=== PATIENT | male | born 1995 | race Hispanic/Latino ===

== ENCOUNTER 2024-10-13 00:33 | Emergency (ER) | payer BC, SELFPAY ==
[2024-10-13 00:40] VITALS: BP 144/80
--- NOTE | 2024-10-13 02:13 | ED.GENMED ---
History of Present Illness
General
Chief Complaint: Ear Problem
Source: patient
Exam Limitations: none
Time Seen by Provider: 10/13/24 01:58
Nursing documentation reviewed up to this point in time: agreed with
History of Present Illness
History of Present Illness:
Note:
CHIEF COMPLAINT(S)
Severe ear pain, particularly in the right ear, with a sensation of fullness and unable to tolerate pain.
HISTORY OF PRESENT ILLNESS
The patient is a 29-year-old male who presents with severe ear pain that began on Saturday 4 days ago. Initially, the pain was tolerable but has become progressively worse, especially in the right ear. He reports a sensation of fullness and the
inability to touch the area due to pain. The patient mentioned feeling liquid in the ear but has not observed any drainage. He described attempting to manage the pain with [id number] ear drops, which have not provided relief. The patient also
reported feeling cold but denies any fever, nausea, or vomiting. The pain is exacerbated when lying down, affecting his ability to sleep. He has not had anything like this before. He denies any nausea or vomiting.
PHYSICAL EXAM
Nursing notes reviewed and vital signs reviewed.
General: Patient is well appearing and in no acute distress; non-toxic
Skin: Warm and dry, no rashes or lesions
Head: Normocephalic, atraumatic
Eyes: Sclera non-icteric. EOMs intact.
Ears: Yellow/white debris noted in external ear canals bilaterally with swelling and erythema. Mastoid tenderness on the right. Occlusion of TM on the right due to degree of swelling and debris.
Cardiac: Regular rate and rhythm, no murmurs
Pulm: Normal respiratory effort, no wheezes, rales, or rhonchi
Neuro: CN II-XII intact, no focal neurologic deficits.
Psychiatric: Appropriate mood and affect.
PLAN
1. Administer a Toradol injection for pain management.
2. Conduct a CT scan to assess for any extension of the ear infection to the surrounding structures.
3. Perform blood work for further evaluation.
4. Prescribe eardrops and oral antibiotics for treatment of the outer ear infection.
5. Advise the patient to follow up with his primary care physician to ensure proper healing.
DIFFERENTIAL DIAGNOSIS
The Differential Diagnosis includes, in no particular order and is not limited to:
1. Acute Otitis Externa
2. Acute Otitis Media
3. Mastoiditis
4. Tinnitus
5. Temporomandibular Joint Disorder
6. Eustachian Tube Dysfunction
7. Labyrinthitis
8. Ear Trauma
9. Sinusitis with referred ear pain
10. Foreign Body in the Ear Canal
MDM/DISPOSITION
The patient is a 29-year-old male who presents with severe ear pain that began on Saturday 4 days ago. Physical exam consistent with bilateral otitis externa. CT scan was obtained due to mastoid tenderness on the right which showed bilateral otitis
externa with mild opacification of the mastoid air cells on the right but no concern for acute mastoiditis or bony erosion. Vision radiologist was concerned about cartilaginous involvement of the right ear and recommended ENT consult. Spoke with ENT
Dr. Quiroz via [employer] who recommends oral ciprofloxacin as well as floxacin drops. I did place ear wick into right ear. Discussed follow up with ENT and strict return precautions. Patient stable for discharge.
Phy Exam
Physical Exam
Physical Exam:
Course
Orders/Labs/Results
Orders:
Orders
10/13/24 02:24
CT Temporal-iac W/ Iv Contrast Urgent
Comment:
Reason For Exam: b/l ear pain, right mastoid tenderness
0.9% Sodium Chloride 500 ml [Nss] 500 ml IV BOLUS
Ketorolac [Toradol] 15 mg IV NOW STA
10/13/24 02:34
Complete Blood Count/With Diff Urgent
Comprehensive Metabolic Panel Urgent
10/13/24 06:02
HYDROmorphone [Dilaudid] 0.5 mg IV NOW STA
Ketorolac [Toradol] 15 mg IV NOW STA
10/13/24 06:03
Ciprofloxacin HCl [Cipro] 500 mg PO BID ONE
10/13/24 06:05
Ofloxacin [Ocuflox] See Dose Instructions OTIC DAILY ONE
Abnormal Lab Results
10/13/24
02:34
WBC 14.0 H 10^3/uL
(4.8-10.8)
Abs Immat Gran (auto) 0.1 H 10^3/uL
(0-0.05)
Absolute Neuts (auto) 10.4 H 10^3/uL
(1.4-6.5)
Absolute Monos (auto) 1.5 H 10^3/uL
(0.1-0.6)
Lymphocytes % 12.2 L %
(20.5-51.1)
Monocytes % 10.7 H %
(1.7-9.3)
Glucose 115 H mg/dl
(70-99)
ALT 86 H U/L
(0-50)
10/13/24 02:34
10/13/24 02:34
Vital Signs
Initial and Last Documented VS:
Initial Vital Signs
Temp Pulse Resp BP Pulse Ox
98.7 F 94 20 144/80 98
10/13/24 00:40 10/13/24 00:40 10/13/24 00:40 10/13/24 00:40 10/13/24 00:40
Last Documented Vital Signs
Temp Pulse Resp BP Pulse Ox
98.7 F 94 20 144/80 98
10/13/24 00:40 10/13/24 00:40 10/13/24 00:40 10/13/24 00:40 10/13/24 02:13
*Pulse Oximetry
SaO2: 98
Oxygen Mode of Delivery: Room air
Patient hypoxic: no
*Critical Care Note
Total Time (30-74mins, 75-104mins- exclusive of procedures): Not Applicable
ED Attending Note
-
Portions of this chart may have been created with voice recognition software.� Occasional wrong word or��sound alike� substitutions may have occurred due to the inherent limitations of voice recognition software.
Discharge Plan
Departure
Patient Disposition: Home (Routine Discharge)
Date of Disposition: 10/13/24
Time of Disposition: 06:59
Patient with high blood pressure during this ER visit?: Yes
Condition: Good
Discharge Problem:
Bilateral otitis externa
Instructions: Outer ear infection - ED discharge instructions, BLOOD PRESSURE
Prescriptions:
New
ciprofloxacin HCl [Cipro] 500 mg tablet
500 mg PO BID 10 Days Qty: 20 0RF
ofloxacin 0.3 % drops
10 drp otic (ear) DAILY 10 Days Qty: 10 0RF
Referrals:
Nikita Quiroz MD [Active, Otology] - Call in 1-3 days for appt
UNKNOWN - PT DOES,NOT KNOW [Family Provider]
Activity Restrictions/Additional Instructions:
Please follow up with your ENT, please call later today for a follow up appointment. The ear wick may fall out on its own. You can apply drops over the ear wick, please apply 10 drops once daily into each ear for 10 days.
The ear wick should stay in for 48 hours.
Ciprofloxacin has been sent to your pharmacy. Please take 1 tablet twice daily for 10 days.
PLEASE RETURN EMERGENCY DEPARTMENT SHOULD YOU DEVELOP AN ACUTE WORSENING OF YOUR SYMPTOMS, FEVERS OR CHILLS, INCREASING SWELLING OF THE EAR, INTRACTABLE NAUSEA OR VOMITING, CHEST PAIN, SHORTNESS OF BREATH, OR ANY OTHER SIGNS OR SYMPTOMS WORRISOME TO
YOU.
Interventions
Interventions:
*Risk Screen - Suicide Last Done: 10/13/24 00:40
*General Assessment Last Done: 10/13/24 01:15
*Neglect/Abuse Screening Last Done: 10/13/24 00:40
*ED- Fall Risk Assessment Last Done: 10/13/24 01:15
*ED COVID-19 Vaccine History Last Done: 10/13/24 01:15
*Nursing Disposition Last Done: 10/13/24 07:23
Discharge Date and Time
Discharge Date/Time: 10/13/24 07:25
Print Language: SLOVENIAN
[2024-10-13] MEDS: NSS 500 IV (02:36)
[2024-10-13] MEDS: TORADOL 15 MG IV ×2 (02:36→06:25)
[2024-10-13 02:54] LABS: Hematocrit 43.3 % (39.0-52.0); Hemoglobin 15.0 g/dL (13.0-18.0); Mean Corp Hgb Conc. 34.6 g/dL (33.0-37.0); Mean Corpuscular Volume 83.3 fL (80.0-94.0); Nucleated Red Blood Cells % 0 % (-); Platelet Count 245 10^3/uL (130-400); Red Cell Dist. Width 12.9 % (11.5-14.5)
[2024-10-13 03:17] LABS: ALT (SGPT) 86 U/L (0-50); AST (SGOT) 29 U/L (17-59); Albumin 4.8 g/dl (3.5-5.0); Alkaline Phosphatase 77 U/L (38-126); Blood Urea Nitrogen 14 mg/dl (9-20); Calcium 9.0 mg/dl (8.4-10.2); Carbon Dioxide 25 mmol/L (22-30); Chloride 105 mmol/L (98-107); Glucose 115 mg/dl (70-99); Potassium 4.2 mmol/L (3.5-5.1); Sodium 140 mmol/L (135-145); Total Protein 7.7 g/dl (6.3-8.2); eGFR > 60.00
[2024-10-13] MEDS: DILAUDID 0.5 MG IV (06:26)
[2024-10-13] MEDS: OCUFLOX 10 DROP OTIC (06:26)
[2024-10-13] MEDS: CIPRO 500 MG PO (06:26)
== END 2024-10-13 07:25 | disposition home or self-care (01) ==
LOC: EMR 00:33
PROVIDERS: Physician Assistant; EMERGENCY PHYSICIAN Student in an Organized Health Care Education/Training Program
DX: H60.93 Unspecified otitis externa, bilateral (principal)
CPT/HCPCS: 99284; 96374; 96375; 96376; 96361; 70481; 80053; 85025; Q9967